=== PATIENT | male | born 1955 | race Caucasian/White ===

== ENCOUNTER 2017-04-10 09:43 | Emergency (ER) | payer OTHER ==
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
[2017-04-10 09:56] VITALS: BP 121/87
== END 2017-04-10 10:13 | disposition home or self-care (01) ==
LOC: UCCORT 09:43
DX: H10.13 Acute atopic conjunctivitis, bilateral (principal); F17.210 Nicotine dependence, cigarettes, uncomplicated
CPT/HCPCS: 99212; G0463